=== PATIENT | male | born 1965 | race Caucasian/White ===

== ENCOUNTER 2017-04-05 09:59 | Emergency (ER) | payer MEDICAID, OTHER ==
[2017-04-05] MEDS ORDERED: Sodium Chloride 0.9% 10 ML Syringe FLUSH PRN (10:07)
[2017-04-05] MEDS ORDERED: LORazepam 2 MG/ML MDV IVPUSH ONE ×2 (10:07→11:20)
[2017-04-05] MEDS ORDERED: HYDROmorphone 1 MG/ML Syringe IVPUSH ONE ×2 (10:07→12:57)
[2017-04-05] MEDS ORDERED: ceFAZolin 2 GM in Premix Bag 1 BAG IV ONE (10:08)
[2017-04-05] MEDS ORDERED: Sodium Chloride 0.9% 500 ML IV ONE (10:08)
[2017-04-05] MEDS ORDERED: HYDROmorphone 1 MG/ML Syringe ONE (10:09)
[2017-04-05] MEDS ORDERED: Diphtheria/Tetanus Toxoids,Adult (Td) 0.5 ML Syringe IM ONE (10:25)
[2017-04-05] MEDS ORDERED: HYDROmorphone 0.5 MG/0.5 ML Syringe IVPUSH ONE ×2 (10:33→15:36)
--- NOTE | 2017-04-05 11:44 | EDM.PDOC ---
ED HPI GENERAL MEDICAL PROBLEM - General Chief Complaint: Trauma Stated Complaint: ARM INJURY Time Seen by Provider: 04/05/17 10:06 Source of Information: Reports: Patient, RN Notes Reviewed - History of Present Illness INITIAL COMMENTS - FREE TEXT/NARRATIVE: 51-year-old male presents to admitting by private vehicle having suffered crush injury to his right hand forearm and elbow. He was cutting down a large tree and states that she "fell wrong briefly crushing and catching the hand elbow and forearm between the huge trunk of the tree and remaining stump. Early this did Roloff quite quickly. He does have open laceration palmar aspect right hand. He does have severe right hand and wrist discomfort. He has forearm discomfort, severe right elbow discomfort and upper arm discomfort as well. Last tetanus immunization a long time ago. He did not suffer any injury to his head neck chest abdomen or lower extremities. this was called as a trauma alert due to mechanism of injury. I did see the patient almost immediately upon arrival to ED. Right Arm Pain Score (Numeric/FACES): 10 - Related Data Allergies Allergy/AdvReac Type Severity Reaction Status Date / Time naproxen Allergy Swollen Verified 04/05/17 10:19 Tongue Home Meds: Home Meds Lisinopril 10 mg PO DAILY 12/09/15 [History] Triamterene/Hydrochlorothiazid [Triamterene-HCTZ 37.5-25 MG] 1 each PO DAILY [History] atorvaSTATin [Lipitor] 40 mg PO BEDTIME 12/09/15 [History] Aspirin/Caffeine [Vern Back & Body Caplet] 1 each PO DAILY 12/31/15 [History] Cephalexin 500 mg PO Q6HR #30 capsule 04/05/17 [Rx] Past Medical History HEENT History: Reports: Impaired Vision Other HEENT History: wears eyeglasses Cardiovascular History: Reports: High Cholesterol, Hypertension Gastrointestinal History: Reports: Hemorrhoids Other Gastrointestinal History: hemerroids, rectal bleeding. States has intestinal issues "but no one can ever figure it out, it drops me to my knees." Genitourinary History: Reports: Renal Calculus Musculoskeletal History: Reports: Back Pain, Chronic, Fracture Psychiatric History: Reports: Addiction, Depression Other Psychiatric History: etoh abuse Endocrine/Metabolic History: Reports: Diabetes, Type II Other Endocrine/Metabolic History: states was pre-diabetic, lost 120# and Metformin was D/C'd. Dermatologic History: Reports: Other (See Below) Other Dermatologic History: states "I itch alot"--states doesn't grow hair in certain places. - Infectious Disease History Infectious Disease History: Reports: Chicken Pox - Past Surgical History HEENT Surgical History: Reports: Tonsillectomy, Other (See Below) Other HEENT Surgeries/Procedures: wisdom teeth removed Respiratory Surgical History: Reports: None GI Surgical History: Reports: Colonoscopy Social & Family History - Tobacco Use Smoking Status *Q: Current Every Day Smoker Years of Tobacco use: 30 Packs/Tins Daily: 1 Used Tobacco, but Quit: Yes Month Tobacco Last Used: 2005 Second Hand Smoke Exposure: Yes - Caffeine Use Caffeine Use: Reports: Coffee, Soda - Alcohol Use Days Per Week of Alcohol Use: 1 - Recreational Drug Use Recreational Drug Use: No Drug Use in Last 12 Months: No Review of Systems - Review of Systems Review Of Systems: See Below Eyes: Reports: No Symptoms Nose: Reports: No Symptoms Mouth/Throat: Reports: No Symptoms Respiratory: Denies: Shortness of Breath, Pleuritic Chest Pain Cardiovascular: Denies: Chest Pain GI/Abdominal: Denies: Abdominal Pain, Nausea, Vomiting Musculoskeletal: Reports: Joint Pain (severe pain right hand, right wrist, right elbow) Skin: Reports: Other (open laceration palmar aspect right hand) Neurological: Reports: Numbness (he does have some numbness of the distal fingers with good sensation to touch). Denies: Weakness ED EXAM, GENERAL - Physical Exam Exam: See Below General Appearance: Alert, Severe Distress Eye Exam: Bilateral Eye: PERRL Ears: Normal External Exam Nose: Normal Inspection Throat/Mouth: Normal Inspection Head: Atraumatic. No: Facial Swelling Neck: Supple, Full Range of Motion. No: Tender Lateral, Tender Midline Respiratory/Chest: No Respiratory Distress, Lungs Clear, Normal Breath Sounds, Chest Non-Tender Cardiovascular: Regular Rate, Rhythm GI/Abdominal: Soft, Non-Tender Back Exam: No: Vertebral Tenderness Extremities: Other (abrasions present lateral upper arm, tenderness lower lateral upper arm, severe tenderness medial and lateral elbow with mild swelling , diffuse tenderness proximal forearm with mild localize swelling, diffuse tenderness right wrist, diffuse tenderness dorsum of right hand, no visible deformity of the hand or wrist.). No: Leg Pain Neurological: Alert, Oriented, Other (patient is able to move fingers and thumb of right hand with good flexion and extension, sensation is present to touch all fingers of right hand and thumb but he states fingers of right hand distally feel less sensitive to touch than the left hand) Skin Exam: Warm, Dry, Normal Color ED TRAUMA PROCEDURES - Laceration/Wound Repair Right Hand Lac/Wound Length In cm: 4.5 Appearance: Linear, Irregular Distal NVT: Other (sensation to touch present R middle and ring fingers but patient states his fingers feel "numb") Skin Prep: Providone-Iodine (Betadine), Saline Exploration/Debridement/Repair: Minimal Debridement Suture Size: 3-0 # of Sutures: 12 - Splinting Right Upper Extremity Splint Site: R upper arm and elbow, long arm splint applied Pre-Procedure NV Status: Normal Post-Procedure NV Status: Normal Splint Material: Fiberglass Splint Design: Posterior Applied & Form Fitted By: Provider Provider Post-Splint Application NV Check: NV Status Normal Complications: No Course - Vital Signs Last Recorded V/S: Last Vital Signs Temp 99.2 F 04/05/17 09:59 Pulse 54 L 04/05/17 17:25 Resp 20 04/05/17 17:25 BP 147/83 H 04/05/17 17:25 Pulse Ox 98 04/05/17 17:25 - Orders/Labs/Meds Orders: Active Orders 24 hr Category Date Time Status Peripheral IV Care [RC] . DIRECTED Care 04/05/17 10:08 Active Vaccines to be Administered [RC] PER UNIT ROUTINE Care 04/05/17 10:25 Active Hand 2V Rt [CR] Stat Exams 04/05/17 10:09 Taken Wrist 2V Rt [CR] Stat Exams 04/05/17 10:09 Taken Sodium Chloride 0.9% [Saline Flush] Med 04/05/17 10:07 Active 10 ml FLUSH ASDIRECTED PRN Peripheral IV Insertion Adult [OM.PC] Stat Oth 04/05/17 10:07 Ordered Medication Orders Sodium Chloride (Saline Flush) 10 ml FLUSH ASDIRECTED PRN PRN Reason: Keep Vein Open Last Admin: 04/05/17 10:05 Dose: 10 ml Labs: Laboratory Tests 04/05/17 04/05/17 Range/Units 10:05 10:05 WBC 12.13 H (4.23-9.07) K/mm3 RBC 4.85 (4.63-6.08) M/mm3 Hgb 15.4 (13.7-17.5) gm/L Hct 44.4 (40.1-51.0) % MCV 91.5 (79.0-92.2) fl MCH 31.8 (25.7-32.2) pg MCHC 34.7 (32.2-35.5) g/dl RDW Std Deviation 41.5 (35.1-43.9) fL Plt Count 337 (163-337) K/mm3 MPV 10.0 (9.4-12.3) fl Neut % (Auto) 53.1 (34.0-67.9) % Lymph % (Auto) 35.1 (21.8-53.1) % [place] % (Auto) 8.9 (5.3-12.2) % Eos % (Auto) 2.1 (0.8-7.0) Baso % (Auto) 0.6 (0.1-1.2) % Neut # (Auto) 6.43 H (1.78-5.38) K/mm3 Lymph # (Auto) 4.26 H (1.32-3.57) K/mm3 [place] # (Auto) 1.08 H (0.30-0.82) K/mm3 Eos # (Auto) 0.26 (0.04-0.54) K/mm3 Baso # (Auto) 0.07 (0.01-0.08) K/mm3 Sodium 141 (136-145) mEq/L Potassium 4.2 (3.5-5.1) mEq/L Chloride 104 (98-107) mEq/L Carbon Dioxide 24 (21-32) mEq/L Anion Gap 17.2 H (5-15) BUN 22 H (7-18) mg/dL Creatinine 1.2 (0.7-1.3) mg/dL Est Cr Clr Drug Dosing TNP Estimated GFR (MDRD) > 60 (>60) mL/min BUN/Creatinine Ratio 18.3 H (14-18) Glucose 145 H (74-106) mg/dL Calcium 9.0 (8.5-10.1) mg/dL Total Bilirubin 0.4 (0.2-1.0) mg/dL AST 27 (15-37) U/L ALT 37 (16-63) U/L Alkaline Phosphatase 84 (46-116) U/L Total Protein 7.5 (6.4-8.2) g/dl Albumin 3.9 (3.4-5.0) g/dl Globulin 3.6 gm/dL Albumin/Globulin Ratio 1.1 (1-2) Meds: Medications Generic Name Dose Route Start Last Admin Trade Name Freq PRN Reason Stop Dose Admin Sodium Chloride 10 ml 04/05/17 10:07 04/05/17 10:05 Saline Flush FLUSH 10 ml ASDIRECTED PRN Administration Keep Vein Open Discontinued Medications Generic Name Dose Route Start Last Admin Trade Name Freq PRN Reason Stop Dose Admin Cephalexin 500 mg 04/05/17 17:13 04/05/17 17:26 Keflex PO 04/05/17 17:14 500 mg ONETIME ONE Administration Hydromorphone HCl 1 mg 04/05/17 10:07 04/05/17 10:06 Dilaudid IVPUSH 04/05/17 10:08 1 mg ONETIME ONE Administration Hydromorphone HCl Confirm 04/05/17 10:09 04/05/17 10:50 Dilaudid Administered 04/05/17 10:10 Not Given Dose 1 mg .ROUTE .STK-MED ONE Hydromorphone HCl 0.5 mg 04/05/17 10:33 04/05/17 10:41 Dilaudid IVPUSH 04/05/17 10:34 0.5 mg ONETIME ONE Administration Hydromorphone HCl 0.5 mg 04/05/17 12:57 04/05/17 13:07 Dilaudid IVPUSH 04/05/17 12:58 0.5 mg ONETIME ONE Administration Hydromorphone HCl 0.5 mg 04/05/17 14:25 04/05/17 14:26 Dilaudid IVPUSH 04/05/17 14:26 0.5 mg ONETIME STA Administration Hydromorphone HCl Confirm 04/05/17 14:28 04/05/17 15:42 Dilaudid Administered 04/05/17 14:29 Not Given Dose 0.5 mg .ROUTE .STK-MED ONE Hydromorphone HCl 0.5 mg 04/05/17 15:36 04/05/17 15:47 Dilaudid IVPUSH 04/05/17 15:37 0.5 mg ONETIME ONE Administration Sodium Chloride 500 mls @ 999 mls/hr 04/05/17 10:08 04/05/17 10:45 Normal Saline IV 04/05/17 10:38 999 mls/hr .BOLUS ONE Administration Cefazolin Sodium/Dextrose 2 gm 50 mls @ 100 mls/hr 04/05/17 10:08 04/05/17 10 :47 / Premix IV 04/05/17 10:37 100 mls/hr ONETIME ONE Administration Lidocaine HCl 50 ml 04/05/17 14:24 04/05/17 15:40 Xylocaine 1% INJECT 04/05/17 14:25 50 ml ONETIME ONE Administration Lidocaine HCl Confirm 04/05/17 14:28 04/05/17 16:00 Xylocaine 1% Administered 04/05/17 14:29 50 ml Dose Administration 50 ml .ROUTE .STK-MED ONE Lorazepam 0.5 mg 04/05/17 10:07 04/05/17 10:38 Ativan IVPUSH 04/05/17 10:08 0.5 mg ONETIME ONE Administration Lorazepam 0.5 mg 04/05/17 11:20 04/05/17 11:30 Ativan IVPUSH 04/05/17 11:21 0.5 mg ONETIME ONE Administration Tetanus/Diphtheria Toxoids 0.5 ml 04/05/17 10:25 04/05/17 10:42 Tenivac IM 04/05/17 10:26 0.5 ml .ONCE ONE Administration - Re-Assessments/Exams Free Text/Narrative Re-Assessment/Exam: 04/05/17 18:14 Laceraton #2, R hand. 1.25 cm long, volar base of R ring finger, shallow but gaping, irrigated with NS. Anesthetized with 1 % lidocaine. two 3-0 ethion sutures placed. Departure - Departure Time of Disposition: 15:30 Disposition: Home, Self-Care 01 Condition: Fair Clinical Impression: Elbow fracture, right Qualifiers: Encounter type: initial encounter Fracture type: closed Qualified Code(s): S42.401A - Unspecified fracture of lower end of right humerus, initial encounter for closed fracture Hand laceration Qualifiers: Encounter type: initial encounter Foreign body presence: without foreign body Laterality: right Qualified Code(s): S61.411A - Laceration without foreign body of right hand, initial encounter Forearm contusion Qualifiers: Encounter type: initial encounter Laterality: right Qualified Code(s): S50.11XA - Contusion of right forearm, initial encounter - Discharge Information Prescriptions: Cephalexin 500 mg PO Q6HR #30 capsule Instructions: Contusion, Laceration Care, Adult, Elbow Fracture, Simple Referrals: Nanda Wen PA-C [Primary Care Provider] - Forms: ED Department Discharge Additional Instructions: right long arm fiberglass splint. Elevate hand wrist elbow and forearm is much as possible trying to keep that above your chest as much as possible, intermittent ice packs, cephalexin antibiotic as prescribed times daily until gone, Tylenol for mild to moderate discomfort or Percocet if needed for severe pain, do not take Tylenol and Percocet at the same time. Arm cradle for support. Follow-up with Dr. Agustin, Orthopedist in 2 to 3 days. His office will call you for appointment time tomorrow AM. If you do not hear from his office by mid morning call ED at [phone] and we will help sort that out. - My Orders Last 24 Hours: My Active Orders 04/05/17 10:07 Sodium Chloride 0.9% [Saline Flush] 10 ml FLUSH ASDIRECTED PRN Peripheral IV Insertion Adult [OM.PC] Stat 04/05/17 10:08 Peripheral IV Care [RC] . DIRECTED 04/05/17 10:09 Hand 2V Rt [CR] Stat Wrist 2V Rt [CR] Stat 04/05/17 10:25 Vaccines to be Administered [RC] PER UNIT ROUTINE - Assessment/Plan Last 24 Hours: My Active Orders 04/05/17 10:07 Sodium Chloride 0.9% [Saline Flush] 10 ml FLUSH ASDIRECTED PRN Peripheral IV Insertion Adult [OM.PC] Stat 04/05/17 10:08 Peripheral IV Care [RC] . DIRECTED 04/05/17 10:09 Hand 2V Rt [CR] Stat Wrist 2V Rt [CR] Stat 04/05/17 10:25 Vaccines to be Administered [RC] PER UNIT ROUTINE
[2017-04-05] MEDS ORDERED: Lidocaine 1% 20 ML MDV INJECT ONE (14:24)
[2017-04-05] MEDS ORDERED: HYDROmorphone 0.5 MG/0.5 ML Syringe IVPUSH STA (14:25)
[2017-04-05] MEDS ORDERED: HYDROmorphone 0.5 MG/0.5 ML Syringe ONE (14:28)
--- NOTE | 2017-04-05 15:21 | CR ---
Right humerus: Two views of the right humerus are obtained. Medial epicondyle fracture is again noted within the distal humerus. No additional abnormality is seen within the right humerus. Impression: 1. Medial epicondyle fracture. Right humerus study is otherwise unremarkable. Diagnostic code #3
--- NOTE | 2017-04-05 15:22 | CR ---
Right forearm: Two views of the right forearm were obtained. Fracture within the medial epicondyle is again seen. Other portions of the right forearm study are unremarkable. Impression: 1. Medial epicondylar fracture within the elbow. 2. Two-view right forearm study is otherwise unremarkable. Diagnostic code #3
--- NOTE | 2017-04-05 15:22 | CR ---
Right elbow: Two views of the right elbow were obtained. Fracture appears to be present within the medial epicondyle. Soft tissue swelling appears to be present. No additional abnormality is identified. Impression: 1. Findings felt compatible with fracture involving the medial epicondyle. 2. Soft tissue swelling. Diagnostic code #3
[2017-04-05] MEDS: Lidocaine 1% 50 ML MDV ONE ×2 (15:44→16:00)
[2017-04-05] MEDS ORDERED: Cephalexin 500 MG Cap PO ONE (17:13)
[2017-04-05 17:30] VITALS: BP 147/83
--- NOTE | 2017-04-06 07:16 | CR ---
Right hand: Two views of the right hand were obtained. Comparison: No previous study. No discrete fracture or other bony abnormality is seen. Impression: 1. No abnormality is identified on two-view right hand study. Diagnostic code #1
--- NOTE | 2017-04-06 07:16 | CR ---
Right wrist: Two views of the right wrist were obtained. Comparison: No prior wrist exam. Joint spaces are maintained. No fracture, dislocation or other bony abnormality is seen. Impression: 1. No abnormality is identified on two-view right wrist exam. Diagnostic code #1
== END 2017-04-05 17:37 | disposition home or self-care (01) ==
LOC: JD.ED 09:59 → SUPCPDRO 09:59 → JD.ED 17:37
DX: S42.441A Displaced fracture (avulsion) of medial epicondyle of right humerus, initial encounter for closed fracture (principal); S61.411A Laceration without foreign body of right hand, initial encounter; S50.11XA Contusion of right forearm, initial encounter; S40.812A Abrasion of left upper arm, initial encounter; I10 Essential (primary) hypertension; E78.00 Pure hypercholesterolemia, unspecified; F32.9 Major depressive disorder, single episode, unspecified; E11.9 Type 2 diabetes mellitus without complications; F17.210 Nicotine dependence, cigarettes, uncomplicated; Z87.442 Personal history of urinary calculi; Z79.84 Long term (current) use of oral hypoglycemic drugs; Z79.82 Long term (current) use of aspirin; Z79.899 Other long term (current) drug therapy; Z88.8 Allergy status to other drugs, medicaments and biological substances; W14.XXXA Fall from tree, initial encounter
CPT/HCPCS: 12002; 29105; 36415; 73060; 73070; 73090; 73100; 73120; 80053; 85025; 90471; 90714; 96365; 96375; 96376; 99284; A9270; J0690; J1170; J2060; J7040; J7050; 99283-25

== ENCOUNTER 2018-03-31 15:47 | Emergency (ER) | payer MEDICAID, OTHER ==
[2018-03-31 16:15] VITALS: BP 131/93
[2018-03-31] MEDS ORDERED: Lidocaine 1% 10 ML MDV INJECT ONE (16:42)
--- NOTE | 2018-03-31 16:46 | EDM.PDOC ---
ED HPI GENERAL MEDICAL PROBLEM - General Chief Complaint: Upper Extremity Injury/Pain Stated Complaint: LEFT HAND INJURY Time Seen by Provider: 03/31/18 16:32 Source of Information: Reports: Patient History Limitations: Reports: No Limitations - History of Present Illness INITIAL COMMENTS - FREE TEXT/NARRATIVE: Patient is a 52-year-old male presents ED complaining of laceration to the base of the left ring finger on the volar side. He states while walking up a set of stairs he tripped and accidentally broke a glass. Bleeding subsided with direct pressure. Some slight numbness and tingling to the lateral aspect of the finger along the base. No decreased range of motion noted. Tetanus status is up-to- date. He offers no additional complains. Left 4-Ring finger Pain Score (Numeric/FACES): 9 - Related Data Allergies Allergy/AdvReac Type Severity Reaction Status Date / Time naproxen Allergy Swollen Verified 04/05/17 10:19 Tongue Home Meds: Home Meds Lisinopril 10 mg PO DAILY 12/09/15 [History] atorvaSTATin [Lipitor] 40 mg PO BEDTIME 12/09/15 [History] Aspirin/Caffeine [Vern Back & Body Caplet] 1 each PO DAILY 12/31/15 [History] LORazepam 0.5 mg PO DAILY PRN 03/31/18 [History] buPROPion [Wellbutrin] 75 mg PO BEDTIME 03/31/18 [History] Past Medical History HEENT History: Reports: Impaired Vision Other HEENT History: wears eyeglasses Cardiovascular History: Reports: High Cholesterol, Hypertension Gastrointestinal History: Reports: Hemorrhoids Other Gastrointestinal History: hemerroids, rectal bleeding. States has intestinal issues "but no one can ever figure it out, it drops me to my knees." Genitourinary History: Reports: Renal Calculus Musculoskeletal History: Reports: Back Pain, Chronic, Fracture Psychiatric History: Reports: Addiction, Anxiety, Depression Other Psychiatric History: etoh abuse Endocrine/Metabolic History: Reports: Diabetes, Type II Other Endocrine/Metabolic History: states was pre-diabetic, lost 120# and Metformin was D/C'd. Dermatologic History: Reports: Other (See Below) Other Dermatologic History: states "I itch alot"--states doesn't grow hair in certain places. - Infectious Disease History Infectious Disease History: Reports: Chicken Pox - Past Surgical History HEENT Surgical History: Reports: Tonsillectomy, Other (See Below) Other HEENT Surgeries/Procedures: wisdom teeth removed Respiratory Surgical History: Reports: None GI Surgical History: Reports: Colonoscopy Social & Family History - Family History Family Medical History: Noncontributory - Tobacco Use Smoking Status *Q: Current Every Day Smoker Years of Tobacco use: 25 Packs/Tins Daily: 1 - Caffeine Use Caffeine Use: Reports: Coffee - Recreational Drug Use Recreational Drug Use: No Review of Systems - Review of Systems Review Of Systems: ROS reveals no pertinent complaints other than HPI. ED EXAM, GENERAL - Physical Exam Exam: See Below Exam Limited By: No Limitations General Appearance: Alert, WD/WN, No Apparent Distress Ears: Hearing Grossly Normal Nose: Normal Inspection Throat/Mouth: Normal Voice, No Airway Compromise Neck: Normal Inspection, Supple Respiratory/Chest: No Respiratory Distress, No Accessory Muscle Use Cardiovascular: Normal Peripheral Pulses, Regular Rate, Rhythm Peripheral Pulses: 2+: Radial (L) Extremities: Other (2 cm laceration to the base of the left ring finger (volar side). No bleeding present ) Neurological: Alert, Oriented, CN II-XII Intact, Normal Cognition, No Motor/ Sensory Deficits Psychiatric: Normal Affect, Normal Mood Skin Exam: Warm, Dry, Intact, Normal Color ED TRAUMA EXTREMITY PROCEDURES - Laceration/Wound Repair Left Digit - 4th (Ring) Lac/Wound Length In cm: 2 Appearance: Subcutaneous, Clean Distal NVT: Neuro & Vascular Intact, No Tendon Injury Anesthetic Type: Local Local Anesthesia - Lidocaine (Xylocaine): 1% Plain Local Anesthetic Volume: Other (7 mls) Skin Prep: Chlorhexidine (Hibiciens), Saline, Sterile Drape Exploration/Debridement/Repair: Wound Explored, In a Bloodless Field, Explored to Base, No Foreign Material Found Closed With: Sutures Suture Size: other (5.0) # of Sutures: 5 Suture Type: Prolene, Interrupted, Simple Drain Placement: No Sterile Dressing Applied: Nurse Tetanus Status Addressed: Yes Complications: No Course - Vital Signs Last Recorded V/S: Last Vital Signs Temp 97.1 F 03/31/18 16:11 Pulse 80 03/31/18 16:11 Resp 16 03/31/18 16:11 BP 131/93 H 03/31/18 16:11 Pulse Ox 95 03/31/18 16:11 - Orders/Labs/Meds Orders: Active Orders 24 hr Category Date Time Status Fingers Fourth Digit Lt F3 [CR] Stat Exams 03/31/18 16:42 Taken Meds: Medications Discontinued Medications Generic Name Dose Route Start Last Admin Trade Name Renard PRN Reason Stop Dose Admin Lidocaine HCl 10 ml 03/31/18 16:42 03/31/18 16:57 Xylocaine 1% INJECT 03/31/18 16:43 10 ml ONETIME ONE Administration - Re-Assessments/Exams Free Text/Narrative Re-Assessment/Exam: Ordered x-ray of the left ring finger to rule out fracture and foreign debris. 1 % lidocaine ordered. X-ray of the finger: Did not reveal any acute bony abnormalities. No foreign debris noted. Laceration closed by Yonathan Ivey PA-C with no complications. No tendon involvement or foreign debris noted. Discharge instructions as documented. The patient remained hemodynamically stable while under my care in the E.D. I discussed the concerning symptoms for which to return to the E.D. with the patient/family. The patient/family verbalized understanding. All questions were answered. Departure - Departure Time of Disposition: 17:48 Disposition: Home, Self-Care 01 Condition: Good Clinical Impression: Laceration of finger of left hand Qualifiers: Encounter type: initial encounter Finger: ring finger Damage to nail status: without damage Foreign body presence: without foreign body Qualified Code(s): S61.215A - Laceration without foreign body of left ring finger without damage to nail, initial encounter - Discharge Information Instructions: Laceration Care, Adult, Stitches, [place], or Adhesive Wound Closure, [id number] Referrals: Cassi Biggs, [employer]NA[employer] [Primary Care Provider] - Forms: ED Department Discharge Additional Instructions: Cleanse site twice daily, PAT dry, reapply bacitracin ointment. Keep area clean and dry. Do not soak wound. Followup with a provider at [facility] in 10 days for suture removal free of charge. Return back to the ED for increased redness, increased swelling, or purulent drainage. - My Orders Last 24 Hours: My Active Orders 03/31/18 16:42 Fingers Fourth Digit Lt F3 [CR] Stat - Assessment/Plan Last 24 Hours: My Active Orders 03/31/18 16:42 Fingers Fourth Digit Lt F3 [CR] Stat
--- NOTE | 2018-04-03 07:15 | CR ---
Left fourth finger: Four views of the left fourth finger are obtained. Soft tissue swelling is identified. No fracture, dislocation or other bony abnormality is seen. Impression: 1. Soft tissue swelling. No acute bony abnormality is identified on left fourth finger study. Diagnostic code #2
== END 2018-03-31 18:00 | disposition home or self-care (01) ==
LOC: JD.ED 15:47
DX: S61.412A Laceration without foreign body of left hand, initial encounter (principal); I10 Essential (primary) hypertension; E78.00 Pure hypercholesterolemia, unspecified; E11.9 Type 2 diabetes mellitus without complications; F17.210 Nicotine dependence, cigarettes, uncomplicated; Z79.82 Long term (current) use of aspirin; F41.9 Anxiety disorder, unspecified; F32.9 Major depressive disorder, single episode, unspecified; Z79.899 Other long term (current) drug therapy; Z88.8 Allergy status to other drugs, medicaments and biological substances; W25.XXXA Contact with sharp glass, initial encounter
CPT/HCPCS: 12001; 73140-26-F3; 73140-F3; 99283-25

== ENCOUNTER 2019-01-02 23:24 | Emergency (ER) | payer MEDICAID ==
[2019-01-02 23:34] VITALS: BP 152/101
[2019-01-03] MEDS ORDERED: diphenhydrAMINE 50 MG/ML SDV IVPUSH ONE (00:24)
[2019-01-03] MEDS ORDERED: predniSONE 20 MG Tab PO STA (00:24)
--- NOTE | 2019-01-03 00:28 | EDM.PDOC ---
ED HPI GENERAL MEDICAL PROBLEM - General Chief Complaint: Allergic Reaction Stated Complaint: TOOK PILL THAT HE IS ALLERGIC TOO DEMETRIO IS SWELLI Time Seen by Provider: 01/03/19 00:10 Source of Information: Reports: Patient, RN Notes Reviewed, Significant Other ( Girlfriend) History Limitations: Reports: No Limitations - History of Present Illness INITIAL COMMENTS - FREE TEXT/NARRATIVE: The patient states that he is allergic to naproxen, that it caused his tongue and face to swell around 2013. He states that he has taken low doses of ibuprofen without difficulty, but that he was prescribed ibuprofen 800 mg per his PCP earlier today, and that when he took his first dose around 22:00, he developed mild tongue swelling and facial pruritus without a rash around 22:10. He has not had any dyspnea or perceived wheezing. He has not previously had an adverse reaction to ibuprofen. The patient did not take any home medications prior to coming to the ED. In addition to ibuprofen, the patient states that he was also prescribed both [place] and Flexeril, however, he did not take either of those medications tonight. The patient's PCP is CARLI Lua. Head Pain Score (Numeric/FACES): 6 - Related Data Allergies Allergy/AdvReac Type Severity Reaction Status Date / Time naproxen Allergy Swollen Verified 01/02/19 23:34 Tongue Home Meds: Home Meds Lisinopril 10 mg PO DAILY 12/09/15 [History] atorvaSTATin [Lipitor] 40 mg PO BEDTIME 12/09/15 [History] Aspirin/Caffeine [Vern Back & Body Caplet] 1 each PO DAILY 12/31/15 [History] LORazepam 0.5 mg PO DAILY PRN 03/31/18 [History] buPROPion [Wellbutrin] 75 mg PO BEDTIME 03/31/18 [History] Past Medical History HEENT History: Reports: Impaired Vision Other HEENT History: wears eyeglasses Cardiovascular History: Reports: High Cholesterol, Hypertension Gastrointestinal History: Reports: Hemorrhoids Genitourinary History: Reports: Renal Calculus Musculoskeletal History: Reports: Back Pain, Chronic, Fracture (RUE) Psychiatric History: Reports: Addiction (alcohol), Anxiety, Depression Endocrine/Metabolic History: Reports: Diabetes, Type II, Obesity/BMI 30+ - Infectious Disease History Infectious Disease History: Reports: Chicken Pox - Past Surgical History HEENT Surgical History: Reports: Oral Surgery (wisdom teeth extracted), Tonsillectomy GI Surgical History: Reports: Colonoscopy (x 1), EGD (x 1) Social & Family History - Family History Family Medical History: Noncontributory - Tobacco Use Smoking Status *Q: Current Every Day Smoker Years of Tobacco use: 35 Packs/Tins Daily: 1 Packs/Tins Daily Comment: Down from 3 ppd - Caffeine Use Caffeine Use: Reports: Coffee, Soda - Alcohol Use Alcohol Use History: Yes Date/Time of Last Drink Comment: 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 ED EXAM GENERAL NO PERIP PULSE - Physical Exam Exam: See Below Exam Limited By: No Limitations General Appearance: Alert, WD/WN, No Apparent Distress Eye Exam: Bilateral Eye: EOMI, Normal Inspection Ears: Normal External Exam, Normal Canal, Hearing Grossly Normal, Normal TMs Nose: Normal Inspection, Normal Mucosa, No Blood Throat/Mouth: Normal Inspection, Normal Lips, Normal Teeth, Normal Gums, Normal Oropharynx (no tongue or uvular swelling), Normal Voice, No Airway Compromise Head: Atraumatic, Normocephalic Neck: Normal Inspection, Supple, Non-Tender, Full Range of Motion. No: Lymphadenopathy (L), Lymphadenopathy (R) Respiratory/Chest: No Respiratory Distress, Lungs Clear, Normal Breath Sounds, No Accessory Muscle Use. No: Decreased Breath Sounds, Crackles, Rhonchi, Wheezing, Stridor, Prolonged Expiration Cardiovascular: Normal Peripheral Pulses, Regular Rate, Rhythm, No Edema, No Gallop, No JVD, No Murmur, No Rub GI/Abdominal: Normal Bowel Sounds, Soft, Non-Tender, No Organomegaly, No Distention, No Abnormal Bruit, No Mass, Other (Obese) (Male) Exam: Circumcised, Deferred Rectal (Males) Exam: Deferred Back Exam: Normal Inspection, Full Range of Motion, NT Extremities: Normal Inspection, Normal Range of Motion, No Pedal Edema, Normal Capillary Refill Neurological: Alert, Oriented, Normal Cognition, No Motor/Sensory Deficits Psychiatric: Normal Affect Skin Exam: Warm, Dry, Intact, Normal Color, No Rash Course - Vital Signs Last Recorded V/S: Last Vital Signs Temp 35.7 C 01/02/19 23:30 Pulse 81 01/02/19 23:30 Resp 18 01/02/19 23:30 BP 152/101 H 01/02/19 23:30 Pulse Ox 97 01/02/19 23:30 - Orders/Labs/Meds Meds: Medications Discontinued Medications Generic Name Dose Route Start Last Admin Trade Name Renard PRN Reason Stop Dose Admin Diphenhydramine HCl 50 mg 01/03/19 00:24 01/03/19 00:38 Benadryl IVPUSH 01/03/19 00:25 50 mg ONETIME ONE Administration Prednisone 60 mg 01/03/19 00:24 01/03/19 00:38 Prednisone PO 01/03/19 00:25 60 mg ONETIME STA Administration - Re-Assessments/Exams Free Text/Narrative Re-Assessment/Exam: 01/03/19 00:25 At present, the patient has no physical findings concerning for an allergic reaction. He states that his tongue feels slightly swollen in the back, although it appears to be normal on examination, and I see no uvular swelling. His lungs are entirely clear to auscultation with no wheezes whatsoever. He reports some pruritus to his face. Because of his significant reaction to naproxen, I am concerned about his current reaction to ibuprofen. Likely, it appears to be quite mild, but given the potential severity of tongue swelling, which could involve obstruction of his airway, I believe it would be prudent to treat him aggressively, therefore I have ordered 50 mg of IV diphenhydramine, and 60 mg of oral prednisone. I plan to keep him here in the ED for least an hour for observation, and if he continues to do well, he may then safely be discharged home. 01/03/19 01:39 I reevaluated the patient. He states that he is feeling much better, although he is tired from the diphenhydramine. He would like to be discharged home. I explained that it is unlikely that he will have a rebound of symptoms, but it is possible, and if he does, he needs to either see his PCP or return to the ED. He agreed that he would. Going forward, I extended it is very important that the patient not take any NSAIDs. Departure - Departure Time of Disposition: 01:40 Disposition: Home, Self-Care 01 Condition: Good Clinical Impression: NSAIDs adverse reaction - Discharge Information *PRESCRIPTION DRUG MONITORING PROGRAM REVIEWED*: Not Applicable *COPY OF PRESCRIPTION DRUG MONITORING REPORT IN PATIENT IGNACIO: Not Applicable Referrals: Odette Fischer PA-C [Primary Care Provider] - Forms: ED Department Discharge Additional Instructions: You were seen in the emergency room for tongue swelling and facial itchiness after taking ibuprofen, a similar, although less severe, type of reaction that you had to naproxen. Based on your history and physical examination, you appear to have a sensitivity to NSAIDs. You were given IV Benadryl and oral prednisone in the ER, which should prevent you from having a more serious reaction. Going forward, it is very important that you not take any NSAIDs, including aspirin, ibuprofen (Motrin, Advil), naproxen (Aleve), or other prescription NSAIDs. If you feel like your symptoms are returning, please follow-up with your PCP or return to the ER immediately.
== END 2019-01-03 01:48 | disposition home or self-care (01) ==
LOC: JD.ED 23:24
DX: R22.0 Localized swelling, mass and lump, head (principal); T39.315A Adverse effect of propionic acid derivatives, initial encounter; E78.00 Pure hypercholesterolemia, unspecified; I10 Essential (primary) hypertension; E11.9 Type 2 diabetes mellitus without complications; F41.9 Anxiety disorder, unspecified; F32.9 Major depressive disorder, single episode, unspecified; E66.9 Obesity, unspecified; F17.210 Nicotine dependence, cigarettes, uncomplicated; Z68.34 Body mass index [BMI] 34.0-34.9, adult; Z79.899 Other long term (current) drug therapy
CPT/HCPCS: 96374; 99283; A9270; J1200

== ENCOUNTER 2020-09-26 16:45 | Emergency (ER) | payer MEDICAID, OTHER ==
[2020-09-26 16:55] VITALS: BP 142/119; PULSE 106
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
[2020-09-26] MEDS ORDERED: HYDROmorphone 1 MG/ML Syringe IM ONE (18:33)
--- NOTE | 2020-09-26 18:41 | CR ---
Right ankle: 4 views of the right ankle were obtained. Comparison: No prior right ankle studies available. Soft tissue swelling is noted. Fracture appears to be present within the lateral malleolus showing no significant displacement. Ankle mortise is symmetric. No additional fracture or other abnormality is appreciated. Impression: 1. Nondisplaced lateral malleolus fracture with soft tissue swelling. 2. No other acute abnormality is appreciated. Diagnostic code #3
--- NOTE | 2020-09-26 18:42 | CR ---
Right tibia and fibula: 2 views of the right tibia and fibula were obtained. Fracture within the lateral malleolus mentioned on ankle study is not visualized on this study as it was not completely included. No additional fracture or other bony abnormality is appreciated. Impression: 1. No abnormality is identified in right tibia and fibula study. Diagnostic code #1
== END 2020-09-26 19:40 | disposition home or self-care (01) ==
LOC: JD.ED 16:45
DX: S82.64XA Nondisplaced fracture of lateral malleolus of right fibula, initial encounter for closed fracture (principal); E78.00 Pure hypercholesterolemia, unspecified; I10 Essential (primary) hypertension; E11.9 Type 2 diabetes mellitus without complications; Z72.0 Tobacco use; Z79.82 Long term (current) use of aspirin; Z79.899 Other long term (current) drug therapy; Z88.6 Allergy status to analgesic agent; V29.9XXA Motorcycle rider (driver) (passenger) injured in unspecified traffic accident, initial encounter
CPT/HCPCS: 29515; 73590; 73610; 96372; 99283; J1170; 29125; 99284

== ENCOUNTER 2021-03-07 18:29 | Emergency (ER) | payer MEDICAID ==
--- NOTE | 2021-03-07 19:13 | EDM.PDOC ---
ED HPI GENERAL MEDICAL PROBLEM - General Chief Complaint: Upper Extremity Injury/Pain Stated Complaint: L LEG INFECTION Time Seen by Provider: 03/07/21 18:41 Source of Information: Reports: Patient, Significant Other (Girlfriend) History Limitations: Reports: No Limitations - History of Present Illness INITIAL COMMENTS - FREE TEXT/NARRATIVE: Mr. Padron is a very pleasant 55 year old gentleman who now presents to the ED with painful redness and swelling to his anterior left leg that he first noticed this past Tuesday evening 03/04/2021. He states that he had been working that day, sometimes on his knees, while wearing pants. He does not believe that it is possible that he was bitten by an iinsect. He denies suffering a significant reaction to insect bites in the past. The patient states that he was seen at the walk-in clinic yesterday, 03/06/2021. He states that no tests were done, but that the provider pen demarcated the edge of the area of erythema, and prescribed for him Keflex 500 mg po BID, which he started taking last night. He states that he has taken a total of 3 doses so far. The patient now presents the ED stating that the provider at the walk-in clinic instructed him to go to the ED if the erythema extended beyond the pen demarcation, which it has. The patient notes that he has had some body aches and chills today. Here in the ED, the patient's initial BP is found to be slightly elevated at 137/97, otherwise, he is hemodynamically stable, afebrile, saturating 98% on room air. He appears to be relatively comfortable, in no acute distress. Prior to Tuesday, the patient denies having a recent fever, chills, sore throat, ear pain, nasal or sinus congestion, cough, dyspnea, chest pain, palpitations, nausea, vomiting, constipation, diarrhea, abdominal pain, urinary symptoms, recent weight gain or weight loss, recent bloody bowel movements or black bowel movements, recent joint aches, headaches, or rashes. The patient's PCP is CARLI Lua. His pain contract administration manager is Dr. Ameya Umana. He has not received a COVID vaccination. Left Leg Pain Score (Numeric/FACES): 3 - Related Data Allergies Allergy/AdvReac Type Severity Reaction Status Date / Time naproxen Allergy Swollen Verified 01/02/19 23:34 Tongue Home Meds: Home Meds Lisinopril 10 mg PO DAILY 12/09/15 [History] atorvaSTATin [Lipitor] 40 mg PO BEDTIME 12/09/15 [History] LORazepam 0.5 mg PO DAILY PRN 03/31/18 [History] buPROPion [Wellbutrin] 75 mg PO BEDTIME 03/31/18 [History] oxyCODONE HCl/Acetaminophen [Percocet 5-325 mg Tablet] 1 each PO Q6H #12 tablet 09/26/20 [Rx] cephALEXin [Cephalexin] 1,000 mg PO BID 03/07/21 [History] Past Medical History HEENT History: Reports: Impaired Vision (wears glasses) Cardiovascular History: Reports: High Cholesterol, Hypertension Gastrointestinal History: Reports: Hemorrhoids Musculoskeletal History: Reports: Fracture (right elbow) Psychiatric History: Reports: Addiction (alcohol), Anxiety, Depression Endocrine/Metabolic History: Reports: Diabetes, Type II, Obesity/BMI 30+ - Infectious Disease History Infectious Disease History: Reports: Chicken Pox - Past Surgical History HEENT Surgical History: Reports: Adenoidectomy, Oral Surgery (dental extractions), Tonsillectomy GI Surgical History: Reports: Colonoscopy (x 1), Other (See Below) (Anal fistulotomy. Hemorrhoid banding.) Musculoskeletal Surgical History: Reports: Other (See Below) (Right elbow repair) Social & Family History - Tobacco Use Tobacco Use Status *Q: Current Every Day Tobacco User Years of Tobacco use: 30 Packs/Tins Daily: 1 Packs/Tins Daily Comment: Down from 3 ppd Tobacco Use Comment: Started smoking 1990 - Caffeine Use Caffeine Use: Reports: Coffee - Alcohol Use Alcohol Use History: No - Recreational Drug Use Recreational Drug Use: No - Living Situation & Occupation Living situation: Reports: , with Significant Other (Girlfriend) Occupation: Employed (Self-employed) Review of Systems - Review of Systems Review Of Systems: Comprehensive ROS is negative, except as noted in HPI. ED EXAM, GENERAL - Physical Exam Exam: See Below Exam Limited By: No Limitations General Appearance: Alert, WD/WN, No Apparent Distress Extremities: Other (There is an area of erythema with calor and minimal swelling measuring approximately 23 x 17 cm to the anterior left leg. The area of erythema extends well beyond a previous pen demarcation. Neurovascular status of the left lower extremity is intact.) Course - Vital Signs Last Recorded V/S: Last Vital Signs Temp 37.0 C 03/07/21 19:50 Pulse 88 03/07/21 19:50 Resp 18 03/07/21 19:50 BP 137/97 H 03/07/21 19:50 Pulse Ox 98 03/07/21 19:50 - Orders/Labs/Meds Labs: Laboratory Tests 03/07/21 Range/Units 19:14 POC Glucose 315 H (70-99) mg/dL - Re-Assessments/Exams Free Text/Narrative Re-Assessment/Exam: 03/07/21 19:07 As above, the patient developed redness and minor swelling to his anterior left leg on Tuesday, and was seen at the walk-in clinic yesterday, where he was started on cephalexin 500 mg po BID. The extent of the erythema was pen demarcated yesterday, but the erythema has since extended considerably beyond that daily, despite the patient having now taken 3 doses of cephalexin, prompting him to come to the ED. On examination, the patient has an approximately 23 x 17 cm area of erythema to his anterior left leg. Within that area, is what may be an insect bite versus a small puncture wound. The erythema is warm to palpation. There is minimal swelling. The main question is whether this is cellulitis versus a local reaction to an insect bite. The patient states that on Tuesday, he had been working with pants on, and kneeling frequently. He thinks the likelihood of an insect bite is extremely low. He also denies prior adverse reactions to insect bites. I believe, therefore, that this is cellulitis. The next question, then, is whether he should stay the course with cephalexin, believing that it is too early to determine whether or not it is an appropriate antibiotic, or change antibiotics, believing that the cephalexin is inadequate. Since it has only been 24 hours, I believe it is too early to determine that cephalexin is inadequate. The fact that the erythema extended beyond the pen demarcation is not surprising, in fact, it is anticipated. The appropriate time for a pen demarcation to be applied is 24 hours after the beginning of antibiotics - it should be applied now. Additionally, the patient has no identifiable risk factors for colonization with MRSA. The only change I would make at this time would be to increase the frequency of the cephalexin to every 6 hours instead of every 12 hours. As the patient has a history of diabetes, on Metformin, but does not check his blood glucose, I have ordered an Accu-Chek. I do not believe that blood work would be of use in this case. 03/07/21 19:18 Accu-Chek is 315, although that is not surprising to the patient, as he states that he just ate. 03/07/21 19:41 The patient clarified that he is not taking 500 mg Q12 hrs, rather, each pill is 500 mg, and he is taking 2 of them every 12 hours = 100 mg Q12 hrs. I will have him switch to 500 mg Q6 hrs. If the erythema extends significantly beyond tonight's pen demarcation, I would like him to return to the ED tomorrow night, at which time I would then perform an MRSA screen by PCR (offered to be performed tonjud, but declined), and switch him to a different antibiotic accordingly. Departure - Departure Time of Disposition: 19:44 Disposition: Home, Self-Care 01 Condition: Good Clinical Impression: Cellulitis of left leg, Hyperglycemia due to type 2 diabetes mellitus - Discharge Information *PRESCRIPTION DRUG MONITORING PROGRAM REVIEWED*: Not Applicable *COPY OF PRESCRIPTION DRUG MONITORING REPORT IN PATIENT IGNACIO: Not Applicable Instructions: Hyperglycemia, [id number], Cellulitis, Adult, [id number] Referrals: Odette Fischer PA-C [Primary Care Provider] - Ameya Umana MD [Ordering Only Provider] - Forms: ED Department Discharge Additional Instructions: You were seen in the emergency room for progressively worsening painful redness and swelling to your left leg since Tuesday. Work-up in the ER included an Accu-Chek, which was found to be elevated at 315. Based on your history, physical examination, and ER Accucheck, you are most likely suffering from cellulitis. We recommend that you continue your current antibiotic = cephalexin (Keflex), but at 1 tablet (500 mg) every 6 hours, instead of 2 tablets every 12 hours. The current extent of redness on your leg was pen demarcated. If the redness continues to extend beyond the pen demarcation, please return to the ER tomorrow for reevaluation. Sepsis Event Note (ED) - Focused Exam Vital Signs: Vital Signs Temp Pulse Resp BP Pulse Ox 03/07/21 19:50 37.0 C 88 18 137/97 H 98
[2021-03-07 19:56] VITALS: BP 137/97; PULSE 88
== END 2021-03-07 19:54 | disposition home or self-care (01) ==
LOC: JD.ED 18:29
DX: L03.116 Cellulitis of left lower limb (principal); E11.65 Type 2 diabetes mellitus with hyperglycemia; E78.00 Pure hypercholesterolemia, unspecified; I10 Essential (primary) hypertension; E66.9 Obesity, unspecified; Z88.5 Allergy status to narcotic agent; Z68.33 Body mass index [BMI] 33.0-33.9, adult; Z79.899 Other long term (current) drug therapy; Z72.0 Tobacco use
CPT/HCPCS: 82947; 99283

== ENCOUNTER 2022-04-28 23:43 | Emergency (ER) | payer MEDICAID | END 2022-04-29 00:48 | LOC: JD.ED 23:43 | DX: Z53.21 Procedure and treatment not carried out due to patient leaving prior to being seen by health care provider (principal) ==

== ENCOUNTER 2023-03-13 19:37 | Emergency (ER) | payer MEDICAID ==
[2023-03-13 21:03] VITALS: BP 136/77; PULSE 74
== END 2023-03-13 21:01 | disposition home or self-care (01) ==
LOC: JD.ED 19:37
DX: S61.211A Laceration without foreign body of left index finger without damage to nail, initial encounter (principal); S61.213A Laceration without foreign body of left middle finger without damage to nail, initial encounter; S61.215A Laceration without foreign body of left ring finger without damage to nail, initial encounter; E78.00 Pure hypercholesterolemia, unspecified; I10 Essential (primary) hypertension; E11.9 Type 2 diabetes mellitus without complications; E66.9 Obesity, unspecified; F17.210 Nicotine dependence, cigarettes, uncomplicated; Z91.09 Other allergy status, other than to drugs and biological substances; Z88.1 Allergy status to other antibiotic agents; Z88.6 Allergy status to analgesic agent; Z79.899 Other long term (current) drug therapy; Z68.31 Body mass index [BMI] 31.0-31.9, adult; X58.XXXA Exposure to other specified factors, initial encounter
CPT/HCPCS: 12001; 99282; 99283

== ENCOUNTER 2023-07-22 14:13 | Emergency (ER) | payer MEDICAID ==
[2023-07-22 14:40] VITALS: BP 132/81; PULSE 98
[2023-07-22] MEDS ORDERED: Ondansetron 4 MG Tab.DIS PO ONE (14:51)
== END 2023-07-22 17:30 | disposition left against medical advice (07) ==
LOC: JD.ED 14:13
DX: S00.91XA Abrasion of unspecified part of head, initial encounter (principal); I10 Essential (primary) hypertension; E78.00 Pure hypercholesterolemia, unspecified; E11.9 Type 2 diabetes mellitus without complications; Z79.899 Other long term (current) drug therapy; Z88.6 Allergy status to analgesic agent; Z91.048 Other nonmedicinal substance allergy status; W22.8XXA Striking against or struck by other objects, initial encounter
CPT/HCPCS: 70450; 99283; A9270